=== PATIENT | male | born 1985 | race Caucasian/White ===

== ENCOUNTER → 2018-05-13 15:00 | Outpatient (CLI) | payer OTHER, SELFPAY ==
--- NOTE | 2018-05-13 15:02 | DI.RAD.S_ITS ---
PROCEDURE: XR FINGER RT MIN 2V INDICATIONS: Pain MCP of 1st digit from hyperextension TECHNIQUE: AP hand, 2 views of the right thumb were acquired. COMPARISON: None. FINDINGS: Bones: Subtle calcification adjacent to dorsal and radial aspect of first metacarpal head, which may represent small avulsion injury in this area. No other fracture or dislocation is seen. Alignment of right hand is anatomic. No suspicious bony lesions. Soft tissues: No suspicious soft tissue calcifications. Soft tissue swelling over dorsal and radial aspect of first MCP joint is seen. IMPRESSION: Findings concerning for subtle avulsion injury involving dorsal and radial aspect of first metacarpal head with overlying soft tissue swelling. Dictated by: Guillermo Dan M.D. on 05/13/2018 at 15:21 Approved by: Guillermo Dan M.D. on 05/13/2018 at 15:23
== END ==
PROVIDERS: Family Provider Family Medicine; PCP Family Medicine; Visit Provider Physician Assistant
DX: S53.31XA Traumatic rupture of right ulnar collateral ligament, initial encounter (principal); M79.644 Pain in right finger(s)
CPT/HCPCS: 73140

== ENCOUNTER → 2018-09-22 11:51 | Outpatient (CLI) | payer OTHER, SELFPAY | PROVIDERS: Family Provider Family Medicine; PCP Family Medicine; Visit Provider Physician Assistant | DX: R68.89 Other general symptoms and signs (principal) | CPT/HCPCS: 87400 ==

== ENCOUNTER 2018-12-09 15:11 | Emergency (ER) | payer OTHER, SELFPAY ==
[2018-12-09 15:15] VITALS: BP 173/100; PULSE 93; RESP 18; TEMP 36.4; O2SAT 97; BMI 29.1
[2018-12-09 15:30] VITALS: BP 153/92; PULSE 89; RESP 18; O2SAT 97
--- NOTE | 2018-12-09 15:35 | DI.RAD.S_ITS ---
PROCEDURE: XR CHEST 1V INDICATIONS: chest pain TECHNIQUE: One view of the chest was acquired. COMPARISON: [facility], , CHEST 2 VIEW, 05/09/2016, 16:10. FINDINGS: Surgical changes and devices: None. Lungs and pleura: Lungs are clear. No pleural effusions or pneumothorax. Mediastinum: Mediastinal contours appear normal. Heart size is normal. Bones and chest wall: No suspicious bony lesions. Overlying soft tissues appear unremarkable. IMPRESSION: No acute disease Dictated by: Compa Packer M.D. on 12/09/2018 at 15:43 Approved by: Compa Packer M.D. on 12/09/2018 at 15:44
--- NOTE | 2018-12-09 15:42 | PC.NURSE ---
Had recent ear infection treated one week ago by walk in clinic with abx. States his ear is still hurting him and he has a 10/10 pounding headache. Took cough syrup last night and Tylenol earlier today.
[2018-12-09 15:43] LABS: INR 1.1 (0.9-1.3); Prothrombin Time 12.6 SECONDS (10.1-12.7)
[2018-12-09 15:46] LABS: PTT Partial Thromboplastin Tim 28 SECONDS (26.4-36.2)
[2018-12-09 16:00] LABS: Add Manual Diff / Slide Review NO; Basophils Absolute Auto 0 /uL (0-100); Basophils Percent Auto 0.2 % (0-2); Eosinophils Absolute Auto 300 /uL (0-450); Eosinophils Percent Auto 4.1 % (2-4); HEMOLYSIS 19 (0-50); Hematocrit 45.1 % (41-53); Lymphocytes Absolute Auto 2100 /uL (1100-4500); Lymphocytes Percent Auto 25.4 % (25-40); Mean Corpuscular HGB Conc 35.5 % (30-36); Mean Corpuscular Hemoglobin 30.5 PG (26-34); Monocytes Absolute Auto 900 /uL (0-900); Monocytes Percent Auto 11.2 % (3-14); Neutrophils Absolute Auto 4800 /uL (1500-7000); Neutrophils Percent Auto 59.1 % (50-75); Platelet Count 239 X10^3/uL (150-400); Red Blood Cell Count 5.24 X10^6/uL (4.5-5.9); Red Cell Distribution Width 13.1 % (11.6-14.8); White Blood Cell Count 8.1 X10^3/uL (4.5-11.0)
[2018-12-09 16:03] LABS: Alanine Aminotransferase 39 IU/L (21-72); Albumin 4.6 g/dL (3.5-5.0); Albumin Globulin Ratio 1.4 (1.0-2.8); Alkaline Phosphatase 51 U/L (38-126); Aspartate Aminotransferase 28 IU/L (17-59); Bilirubin Total 0.5 mg/dL (0.2-1.3); Blood Urea Nitrogen 14 mg/dL (9-20); Calcium 9.6 mg/dL (8.4-10.2); Carbon Dioxide 29 mmol/L (22-32); Chloride 99 mmol/L (98-107); Creatine Kinase 89 U/L (55-170); Estimated Glomerular Filt Rate > 60.0 mL/min (>60); Globulin 3.3 g/dL (1.7-4.1); Glucose 118 mg/dL (70-100); Lipase 80 U/L (23-300); Potassium 3.4 mmol/L (3.4-5.1); Sodium 138 mmol/L (137-145); Total Protein 7.9 g/dL (6.3-8.2)
[2018-12-09 16:19] VITALS: BP 159/91; PULSE 82
[2018-12-09 16:19] LABS: Troponin I < 0.012 ng/mL (0.01-0.034)
[2018-12-09] MEDS: PROCHLORPERAZINE 10 MG/2 ML VIAL IV (16:19)
[2018-12-09] MEDS: KETOROLAC 60 MG/2 ML VIAL 30 MG IV (16:19)
[2018-12-09] MEDS: SODIUM CHLORIDE 0.9% 1,000 ML 1000 ML IV (16:19)
[2018-12-09 17:24] VITALS: BP 146/89; PULSE 90; RESP 21; O2SAT 99
[2018-12-09] MEDS: diphenhydrAMINE 50 MG/ML VIAL 25 MG IV (17:46)
[2018-12-09 17:58] VITALS: BP 165/109; PULSE 89; RESP 11; O2SAT 98
--- NOTE | 2018-12-17 19:21 | ED_ITS ---
HPI - General Adult General Chief complaint: Hypertension Stated complaint: HEADACHE CHEST PAIN BLOOD PRESSURE IS HIGH Time Seen by Provider: 12/09/18 15:21 Source: patient and family Mode of arrival: ambulatory Limitations: no limitations History of Present Illness HPI narrative: Patient comes emergency department complaining of headache and chest tightness. He states his blood pressure has also been running high for the last week or 2. Patient states he has been under an extreme amount of stress at work, as well as some other life stresses outside of work. The patient has a history of hypertension, and states that he had been recently started on another medication for his blood pressure, in addition to his metoprolol. Patient denies any history of heart problems. He denies shortness of breath, nausea, vomiting, abdominal pain, or back pain. He states the chest discomfort is not pain but tightness. He denies dysuria. No fevers or cough. No neurologic deficits. No other complaints at this time. Related Data Home Medications Medication Instructions Recorded Confirmed acetaminophen 1 dose PO PRN PRN 12/09/18 12/10/18 quinapril-hydrochlorothiazide 1 tab PO DAILY 12/09/18 12/10/18 Previous Rx's Medication Instructions Recorded metoprolol tartrate 100 mg PO DAILY #30 tab 12/09/18 doxycycline monohydrate 100 mg 100 mg PO BID #20 tab 12/10/18 tablet Allergies Allergy/AdvReac Type Severity Reaction Status Date / Time No Known Drug Allergies Allergy Verified 12/10/18 13:07 Review of Systems Constitutional Denies chills, Denies fever(s), Reports headache(s), Denies lethargy and Denies weakness Eyes Denies change in vision, Denies eye discharge, Denies irritation and Denies loss of vision ENT Ears, Nose, Mouth, and Throat: Denies change in voice, Reports headache(s), Denies neck pain and Denies sore throat Cardiovascular Denies chest pain, Denies irregular heart rhythm, Denies lightheadedness, Denies palpitations, Denies dyspnea, Denies dyspnea on exertion and Denies orthopnea Comments: Chest tightness Respiratory Denies cough, Denies dyspnea, Denies dyspnea on exertion and Denies wheezing Gastrointestinal Gastrointestinal: Denies abdominal pain, Denies change in bowel habits, Denies diarrhea, Denies nausea and Denies vomiting Genitourinary Denies hematuria, Denies flank pain, Denies urinary incontinence and Denies urinary urgency Musculoskeletal Denies neck pain Integumentary/Breasts Denies pruritus, Denies erythema, Denies rash and Denies wounds Neurologic Denies confusion, Reports headache(s), Denies loss of vision and Denies weakness Psychiatric Denies anxiety, Denies confusion, Denies depression, Denies homicidal ideation and Denies suicidal ideation Endocrine Denies palpitations Hematologic/Lymphatic Denies easy bruising Allergic/Immunologic Denies wheezing PFSH Medical History HTN (hypertension) (Acute) Surgical History No pertinent past surgical history (Acute) Social History Smoking Status: Never smoker second hand exposure: No alcohol intake: current (Beer about 1x/month) substance use type: does not use Social History Smoking Status: Never smoker second hand exposure: No alcohol intake: current (Beer about 1x/month) substance use type: does not use Exam Initial Vital Signs Initial Vital Signs: Vital Signs Temperature 97.5 F L 12/09/18 15:15 Pulse Rate 93 H 12/09/18 15:15 Respiratory Rate 18 12/09/18 15:15 Blood Pressure 173/100 H 12/09/18 15:15 Pulse Oximetry 97 12/09/18 15:15 Const General: cooperative and well developed Nutritional Appearance: well nourished Orientation: alert, awake, oriented x3 and not confused [facility] Head: normocephalic and atraumatic Ears: external ears normal Nose: external nose normal and No nasal discharge Face and sinus: face symmetric and No dry mucous membranes Mouth: oral mucosae normal and moist mucous membranes Teeth and gingiva: dentition normal Eyes General: appearance normal, both eyes and all related structures Eyelids: eyelids normal Conjunctivae: conjunctivae normal Sclera: sclerae normal Pupils: PERRL EOM: EOM intact bilaterally Neck Neck: normal visual inspection, trachea midline, No lymphadenopathy, No midline deformity and No JVD Lymphatic: No lymphedema Chest Chest: normal inspection of the chest Resp Effort & Inspection: normal respiratory effort, able to speak in complete sentences, no respiratory distress and no use of accessory muscles Auscultation: clear to auscultation bilaterally, no rales, no rhonchi and no wheezes Cardio Rate: regular rate Rhythm: regular rhythm Heart Sounds: no click, no gallops, no murmurs and no rubs Pulses: normal peripheral pulses GI Inspection: non-distended Palpation: soft, no hepatosplenomegaly, No guarding, No pulsatile mass and No tender Auscultation: normal bowel sounds Back/Spine/Pelvis Back: No CVA tenderness Cervical Spine: cervical ROM normal and No pain with cervical ROM Thoracic/Lumbar Spine: thoracic and lumbar spine normal to inspection Skin General: no rashes or lesions noted, No jaundice and No petechiae Neuro General: alert, oriented x3, gait normal and no focal motor deficits Speech: speech normal Extrem General: full ROM, no clubbing, cyanosis or edema, no pedal edema and no calf tenderness Psych Appearance: well kempt Mental Status: mental status grossly normal Attitude: cooperative Thought Content: normal and suicidality Judgment: judgment good Course Course Narrative: The patient was treated symptomatically with Toradol Compazine and Benadryl. His blood pressure did come down to the 140s over 80s, which was a significant improvement. Patient's workup, including cardiac markers, was negative. I discussed with the patient that it may be time for him to look for a different job but if his job is causing him this much stress. The patient states that he is actually working on this. We have discussed other beneficial lifestyle changes that he could make to help his blood pressure. The patient's pain and discomfort are improved to a 2/10, and I feel he is stable for discharge home. We have discussed the usual indications for return. Orders Ordered: Discontinued Medications Diphenhydramine HCl (Benadryl) 25 mg IV NOW ONE Stop: 12/09/18 17:38 Last Admin: 12/09/18 17:46 Dose: 25 mg Sodium Chloride (Normal Saline 0.9%) 1,000 mls @ 1,000 mls/hr IV BOLUS ONE Stop: 12/09/18 17:06 Last Infusion: 12/09/18 17:46 Dose: 0 mls/hr Admin: 12/09/18 16:19 Dose: 1,000 mls/hr Ketorolac Tromethamine (Toradol) 30 mg IV NOW ONE Stop: 12/09/18 16:08 Last Admin: 12/09/18 16:19 Dose: 30 mg Prochlorperazine (Compazine) 10 mg IV NOW ONE Stop: 12/09/18 16:08 Last Admin: 12/09/18 16:19 Dose: 10 mg Medical Decision Making Medical Records Medical records reviewed: Yes I reviewed the patient's medical records. Lab Data Lab results reviewed: Yes I reviewed the patient's lab results. Result diagrams: 12/09/18 15:20 12/09/18 15:20 Lab Results 12/09/18 12/09/18 12/09/18 Range/Units 15:20 15:20 15:20 WBC 8.1 (4.5-11.0) X10^3/uL RBC 5.24 (4.5-5.9) X10^6/uL Hgb 16.0 (13.5-17.5) g/dL Hct 45.1 (41-53) % MCV 86.0 (80-100) fL MCH 30.5 (26-34) PG MCHC 35.5 (30-36) % RDW 13.1 (11.6-14.8) % Plt Count 239 (150-400) X10^3/uL Neut % (Auto) 59.1 (50-75) % Lymph % (Auto) 25.4 (25-40) % [place] % (Auto) 11.2 (3-14) % Eos % (Auto) 4.1 H (2-4) % Baso % (Auto) 0.2 (0-2) % Neut # (Auto) 4800 (2359-6060) /uL Lymph # (Auto) 2100 (2530-9360) /uL [place] # (Auto) 900 (0-900) /uL Eos # (Auto) 300 (0-450) /uL Baso # (Auto) 0 (0-100) /uL PT 12.6 (10.1-12.7) SECONDS INR 1.1 (0.9-1.3) APTT 28 (26.4-36.2) SECONDS Sodium 138 (137-145) mmol/L Potassium 3.4 (3.4-5.1) mmol/L Chloride 99 (98-107) mmol/L Carbon Dioxide 29 (22-32) mmol/L BUN 14 (9-20) mg/dL Creatinine 0.70 (0.66-1.25) mg/dL Estimated GFR > 60.0 (>60) mL/min BUN/Creatinine Ratio 20.0 (6-22) Glucose 118 H (70-100) mg/dL Calcium 9.6 (8.4-10.2) mg/dL Total Bilirubin 0.5 (0.2-1.3) mg/dL AST 28 (17-59) IU/L ALT 39 (21-72) IU/L Alkaline Phosphatase 51 (38-126) U/L Total Creatine Kinase 89 (55-170) U/L CK-MB (CK-2) TNP CK-MB (CK-2) Rel Index TNP Troponin I < 0.012 (0.01-0.034) ng/mL Total Protein 7.9 (6.3-8.2) g/dL Albumin 4.6 (3.5-5.0) g/dL Globulin 3.3 (1.7-4.1) g/dL Albumin/Globulin Ratio 1.4 (1.0-2.8) Lipase 80 (23-300) U/L Imaging Data Chest x-ray: Radiologist's impression: PROCEDURE: XR CHEST 1V INDICATIONS: chest pain TECHNIQUE: One view of the chest was acquired. COMPARISON: [facility], CHEST 2 VIEW, 05/09/2016, 16:10. FINDINGS: Surgical changes and devices: None. Lungs and pleura: Lungs are clear. No pleural effusions or pneumothorax. Mediastinum: Mediastinal contours appear normal. Heart size is normal. Bones and chest wall: No suspicious bony lesions. Overlying soft tissues appear unremarkable. IMPRESSION: No acute disease Dictated by: Compa Packer M.D. on 12/09/2018 at 15:43 Approved by: Compa Packer M.D. on 12/09/2018 at 15:44 ECG Data Attestation: I personally reviewed and interpreted this ECG as follows: Interpretation: [place]: Normal Rhythm: Normal sinus Rate: Normal No significant ST T wave changes Interpretation: Normal sinus rhythm; no signs of acute ischemia, as interpreted by ED MD. Discharge Plan Departure Patient Disposition: Home Clinical Impression: Essential hypertension Discharge Date/Time: 12/09/18 17:59 Interventions: ED Discharge Assessment Last Done: 12/09/18 17:58 Instructions: DI for High Blood Pressure Activity Restrictions/Additional Instructions: Your labs look good. Your blood pressure is elevated, but not dangerously so. However, especially given your young age, it is important to try to get better control of your blood pressure. As such, your metoprolol dose has been raised to 100 mg from 75. Please take 2 pills every day instead of 1.5, and see your primary care physician to be sure this is a good long-term plan. Your prescription has been electronically sent to the [facility] pharmacy. Prescriptions: Changed metoprolol tartrate 50 mg tablet 100 mg PO DAILY Qty: 30 RF: 0 No Action doxycycline monohydrate 100 mg tablet 100 mg PO BID Qty: 20 RF: 0 quinapril-hydrochlorothiazide 20-12.5 mg tablet 1 tab PO DAILY RF: 0 acetaminophen 325 mg Tablet 1 dose PO PRN PRN (Reason: pain or fever) RF: 0 Referrals: Renzo Cuevas MD [Primary Care Provider] -
== END 2018-12-09 17:59 | disposition home or self-care (01) ==
PROVIDERS: Emergency Provider Emergency Medicine; Family Provider Family Medicine; PCP Family Medicine
DX: I10 Essential (primary) hypertension (principal)
CPT/HCPCS: 36591; 71045; 80053; 82550; 83690; 84484; 85025; 85610; 85730; 93005; 96361; 96374; 96375; 99283; 99285; J0780; J1200; J1885

== ENCOUNTER → 2018-12-11 06:57 | Outpatient (CLI) | payer OTHER, SELFPAY ==
[2018-12-11 08:37] LABS: Cholesterol 164 mg/dL (140-199); HDL Cholesterol 30 mg/dL (40-60); LDL Cholesterol Calculated 75 mg/dL (<100); Triglycerides 293 mg/dL (35-150)
[2018-12-11 09:55] LABS: Creatinine Urine Random 184.3 mg/dL
[2018-12-11 09:59] LABS: Microalbumi Creatinin Ratio Ur 8.6 ug/mg CR (<30); Microalbumin Urine Random 1.6 mg/dL (0-1.6)
== END ==
PROVIDERS: PCP Family Medicine; Visit Provider Nurse Practitioner Family
DX: E78.00 Pure hypercholesterolemia, unspecified (principal); I10 Essential (primary) hypertension
CPT/HCPCS: 36415; 80061; 82043; 82570

== ENCOUNTER → 2019-03-27 14:04 | Outpatient (CLI) | payer OTHER, SELFPAY ==
--- NOTE | 2019-03-27 14:06 | DI.RAD.S_ITS ---
PROCEDURE: XR ANKLE RT MIN 3V INDICATIONS: right lateral ankle pain TECHNIQUE: 3 views of the ankle were acquired. COMPARISON: None. FINDINGS: Bones: Subtle lucency at the tip of the distal fibula. Ankle mortise is normally aligned. No suspicious bony lesions. Small plantar calcaneal spur. Soft tissues: Minimal swelling at the lateral malleolus. No tibiotalar joint effusion. Achilles tendon appears normal. IMPRESSION: Lucency at the tip of the distal fibula is suspicious for nondisplaced acute fracture. Followup radiographs in 7-10 days would be helpful for further evaluation. Dictated by: Andrea Reyes M.D. on 03/27/2019 at 15:36 Approved by: Andrea Reyes M.D. on 03/27/2019 at 15:41
== END ==
PROVIDERS: PCP Nurse Practitioner Family; Visit Provider Nurse Practitioner Family
DX: M25.571 Pain in right ankle and joints of right foot (principal); M77.31 Calcaneal spur, right foot
CPT/HCPCS: 73610

== ENCOUNTER → 2019-03-28 07:52 | Outpatient (CLI) | payer OTHER, SELFPAY ==
[2019-03-28 09:12] LABS: Triglycerides 238 mg/dL (35-150)
== END ==
PROVIDERS: PCP Nurse Practitioner Family; Visit Provider Nurse Practitioner Family
DX: E78.1 Pure hyperglyceridemia (principal)
CPT/HCPCS: 84478

== ENCOUNTER → 2020-01-22 06:49 | Outpatient (CLI) | payer OTHER, SELFPAY ==
[2020-01-22 08:05] LABS: Add Manual Diff / Slide Review NO; Basophils Absolute Auto 0 /uL (0-100); Basophils Percent Auto 0.6 % (0-2); Eosinophils Absolute Auto 200 /uL (0-450); Eosinophils Percent Auto 2.9 % (2-4); Hematocrit 45.4 % (41-53); Hemoglobin 15.9 g/dL (13.5-17.5); Lymphocytes Absolute Auto 2600 /uL (1100-4500); Lymphocytes Percent Auto 31.9 % (25-40); Mean Corpuscular Hemoglobin 30.9 PG (26-34); Mean Corpuscular Volume 88.5 fL (80-100); Monocytes Absolute Auto 600 /uL (0-900); Monocytes Percent Auto 7.4 % (3-14); Neutrophils Absolute Auto 4700 /uL (1500-7000); Neutrophils Percent Auto 57.2 % (50-75); Platelet Count 250 X10^3/uL (150-400); Red Blood Cell Count 5.13 X10^6/uL (4.5-5.9); Red Cell Distribution Width 12.8 % (11.6-14.8); White Blood Cell Count 8.2 X10^3/uL (4.5-11.0)
[2020-01-22 08:38] LABS: BUN Creatinine Ratio 25.3 (6-22); Blood Urea Nitrogen 20 mg/dL (9-20); Calcium 9.9 mg/dL (8.4-10.2); Carbon Dioxide 30 mmol/L (22-32); Chloride 101 mmol/L (98-107); Cholesterol 182 mg/dL (140-199); Estimated Glomerular Filt Rate > 60.0 mL/min (>60); Glucose 104 mg/dL (70-100); HDL Cholesterol 36 mg/dL (40-60); HEMOLYSIS < 15 (0-50); LDL Cholesterol Calculated 82 mg/dL (<100); Sodium 138 mmol/L (137-145); Triglycerides 318 mg/dL (35-150)
== END ==
PROVIDERS: PCP Nurse Practitioner Family; Referring Provider Nurse Practitioner Family; Visit Provider Nurse Practitioner Family
DX: E78.1 Pure hyperglyceridemia (principal); I10 Essential (primary) hypertension
CPT/HCPCS: 36415; 80048; 80061; 85025

== ENCOUNTER → 2021-01-23 07:02 | Outpatient (CLI) | payer BC, SELFPAY ==
[2021-01-23 08:38] LABS: Alanine Aminotransferase 42 IU/L (<50); Albumin 4.5 g/dL (3.5-5.0); Albumin Globulin Ratio 1.5 (1.0-2.8); Alkaline Phosphatase 42 U/L (38-126); Aspartate Aminotransferase 30 IU/L (17-59); BUN Creatinine Ratio 15.1 (6-22); Bilirubin Total 0.6 mg/dL (0.2-1.3); Blood Urea Nitrogen 13 mg/dL (9-20); Calcium 9.7 mg/dL (8.4-10.2); Carbon Dioxide 29 mmol/L (22-32); Chloride 104 mmol/L (98-107); Cholesterol 187 mg/dL (140-199); Estimated Glomerular Filt Rate > 60.0 mL/min (>60); Glucose 108 mg/dL (70-100); HDL Cholesterol 41 mg/dL (40-60); HEMOLYSIS < 15 (0-50); LDL Cholesterol Calculated 114 mg/dL (<100); Magnesium 2.1 mg/dL (1.6-2.3); Potassium 3.8 mmol/L (3.4-5.1); Sodium 140 mmol/L (137-145); Total Protein 7.5 g/dL (6.3-8.2); Triglycerides 159 mg/dL (35-150)
[2021-01-23 08:49] LABS: Vitamin D 25 Hydroxy (D3) 63.6 ng/mL (30.0-100.0)
[2021-01-23 09:21] LABS: Vitamin B12 274 pg/mL (239-931)
== END ==
PROVIDERS: PCP Nurse Practitioner Family; Referring Provider Nurse Practitioner Family; Visit Provider Nurse Practitioner Family
DX: Z00.00 Encounter for general adult medical examination without abnormal findings (principal); E78.1 Pure hyperglyceridemia; Z01.89 Encounter for other specified special examinations; I10 Essential (primary) hypertension
CPT/HCPCS: 36415; 80053; 80061; 82306; 82607; 83735

== ENCOUNTER → 2022-01-26 11:26 | Outpatient (CLI) | payer BC, SELFPAY ==
[2022-01-26 12:05] LABS: Add Manual Diff / Slide Review NO; Basophils Absolute Auto 100 /uL (0-100); Basophils Percent Auto 0.9 % (0-2); Eosinophils Absolute Auto 200 /uL (0-450); Eosinophils Percent Auto 2.9 % (2-4); Hematocrit 47.2 % (41-53); Hemoglobin 16.6 g/dL (13.5-17.5); Lymphocytes Absolute Auto 3100 /uL (1100-4500); Lymphocytes Percent Auto 39.3 % (25-40); Mean Corpuscular HGB Conc 35.1 % (30-36); Mean Corpuscular Hemoglobin 30.3 PG (26-34); Mean Corpuscular Volume 86.3 fL (80-100); Monocytes Absolute Auto 500 /uL (0-900); Monocytes Percent Auto 6.9 % (3-14); Neutrophils Absolute Auto 3900 /uL (1500-7000); Platelet Count 272 X10^3/uL (150-400); Red Blood Cell Count 5.47 X10^6/uL (4.5-5.9); Red Cell Distribution Width 12.8 % (11.6-14.8); White Blood Cell Count 7.8 X10^3/uL (4.5-11.0)
[2022-01-26 12:19] LABS: Alanine Aminotransferase 55 IU/L (<50); Albumin 5.3 g/dL (3.5-5.0); Albumin Globulin Ratio 1.8 (1.0-2.8); Alkaline Phosphatase 42 U/L (38-126); Aspartate Aminotransferase 32 IU/L (17-59); BUN Creatinine Ratio 15.6 (6-22); Bilirubin Total 0.7 mg/dL (0.2-1.3); Blood Urea Nitrogen 15 mg/dL (9-20); Calcium 9.8 mg/dL (8.4-10.2); Carbon Dioxide 28 mmol/L (22-32); Chloride 102 mmol/L (98-107); Cholesterol 216 mg/dL (140-199); Estimated Glomerular Filt Rate > 60 mL/min (>60); Glucose 104 mg/dL (70-100); HDL Cholesterol 44 mg/dL (40-60); HEMOLYSIS < 15 (0-50); LDL Cholesterol Calculated 135 mg/dL (<100); Potassium 4.3 mmol/L (3.4-5.1); Sodium 141 mmol/L (137-145); Total Protein 8.3 g/dL (6.3-8.2); Triglycerides 185 mg/dL (35-150)
== END ==
PROVIDERS: PCP Family Medicine; Referring Provider Family Medicine; Visit Provider Family Medicine
DX: E78.1 Pure hyperglyceridemia (principal); I10 Essential (primary) hypertension; R73.03 Prediabetes
CPT/HCPCS: 36415; 80053; 80061; 85025

== ENCOUNTER 2022-11-15 06:48 | Day surgery (SDC) | payer BC, SELFPAY ==
[2022-11-15] MEDS: LACTATED RINGERS 1,000 ML 42 ML IV (07:11)
[2022-11-15 07:23] VITALS: BP 120/77; PULSE 63; RESP 21; TEMP 36.6; O2SAT 96; BMI 27.6
--- NOTE | 2022-11-15 07:44 | PM.HP.1 ---
History of Present Illness History of Present Illness Date Patient Seen: 11/15/22 Time Patient Seen: 07:44 Chief complaint: Screening Colonoscopy Narrative: Buzz is a 36-year-old man who presents for colonoscopy because of rectal pain and rectal bleeding. Please see the office note from September details [facility] Medical History Bunion of great toe of right foot Family history of colon cancer HTN (hypertension) Patient request for diagnostic testing Prediabetes Prostatitis Surgical History No pertinent past surgical history Social History marital status: household members: spouse and children lives independently: Yes occupational status: employed Smoking Status: Former smoker second hand exposure: No alcohol intake: former substance use type: does not use Meds Home Medications and Allergies Home Medications Medication Instructions Recorded Confirmed Type metoprolol tartrate 50 mg tablet 50 mg PO BID #180 tabs 01/26/22 11/15/22 Rx lisinopril 20 1 tab PO DAILY #90 tabs 05/22/22 11/15/22 Rx mg-hydrochlorothiazide 12.5 mg tablet Allergies Allergy/AdvReac Type Severity Reaction Status Date / Time No Known Drug Allergies Allergy Verified 11/15/22 07:13 Exam Vital Signs (past 8 hours): - 11/15/22 07:23 Temperature 97.9 F Pulse Rate 63 Respiratory Rate 21 Blood Pressure 120/77 Pulse Oximetry 96 Oxygen Delivery Method Room Air Oxygen Delivery Method Room Air Const General: No acute distress Assessment & Plan Assessment and plan (1) Family history of colon cancer: Status: Acute (2) Rectal bleeding: Status: Acute Plan Reviewed risks and benefits of colonoscopy and he would like to proceed.
--- NOTE | 2022-11-15 08:20 | P.OP.COLON_ITS ---
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 The patient was connected to monitoring devices. A time-out was performed. Sedation was administered. Once the patient was adequately sedated, a digital rectal exam was performed and was normal. The scope was then inserted and advanced to the cecum where the appendiceal orifice was identified and photographed. The scope was then slowly withdrawn over greater than 6 minutes. The mucosa was thoroughly inspected. No polyps were seen. The scope was retroflexed in the rectum. No other abnormalities were seen. The scope was straightened and removed. The patient was awakened and brought to recovery. Scope withdrawal time: 20 minutes Sedation time: 27 minutes EBL: 0 Findings: Normal colon Post-procedure Recommendations: Colonoscopy in 10 years Disposition: PACU
[2022-11-15 08:22] VITALS: BP 99/59; PULSE 67; RESP 16; TEMP 36.2; O2SAT 100
[2022-11-15 08:27] VITALS: BP 99/62; PULSE 67; RESP 14; O2SAT 95
[2022-11-15 08:32] VITALS: BP 116/74; PULSE 73; RESP 16; TEMP 36.2; O2SAT 95
== END 2022-11-15 08:50 | disposition home or self-care (01) ==
PROVIDERS: PCP Family Medicine; Referring Provider Surgery; Visit Provider Surgery
PROC: 0DJD8ZZ Inspection of Lower Intestinal Tract, Via Natural or Artificial Opening Endoscopic (ICD-10-PCS; CPT 45378; principal; 2022-11-15 07:45)
DX: K62.5 Hemorrhage of anus and rectum (principal); Z86.010 Personal history of colon polyps; K62.89 Other specified diseases of anus and rectum
CPT/HCPCS: 45378; J2704

== ENCOUNTER → 2022-12-08 08:54 | Outpatient (CLI) | payer OTHER, SELFPAY ==
--- NOTE | 2022-12-08 08:56 | DI.MRI.S_ITS ---
PROCEDURE: MR ELBOW RT WO CON INDICATIONS: Pain in right elbow TECHNIQUE: Noncontrast coronal proton density fast spin echo and T2 fast spin echo with fat saturation, axial and sagittal T1 spin echo and T2 fast spin echo with fat saturation through the elbow. COMPARISON: None. FINDINGS: Image quality: Excellent. Lateral structures: The lateral ulnar collateral ligament and radial collateral ligament both appear intact. The overlying common extensor tendon also appears normal. Medial structures: The ulnar collateral ligament appears thickened near its medial epicondylar insertion. The overlying common flexor tendon also appears thickened at its medial epicondylar insertion with intrasubstance T2 hyperintense signal. The ulnar nerve appears normal in size and signal within the cubital tunnel. Anterior structures: The biceps and brachialis tendons both appear intact as they insert onto the proximal radius and ulna, respectively. No bicipitoradial bursal fluid. The median and radial neurovascular bundles appear normal; no focal muscle atrophy to suggest nerve impingement. Posterior structures: Distal triceps tendon is thickened with intrasubstance T2 hyperintense signal at its proximal olecranon insertion. No olecranon bursal fluid. Bone and cartilage: No bone marrow contusions or fractures. No osteochondral injuries. IMPRESSION: 1. Finding is suggestive of medial epicondylitis with tendinosis and low-grade partial-thickness tear involving common flexor tendon origin and underlying ulnar collateral ligament sprain/partial-thickness tear. 2. Distal triceps tendinosis and low-grade partial-thickness tear at its proximal olecranon insertion. 3. No marrow edema. No fracture or dislocation. Rest of the elbow tendons and ligaments are intact. Dictated by: Guillermo Dan M.D. on 12/11/2022 at 10:27 Approved by: Guillermo Dan M.D. on 12/11/2022 at 10:39
== END ==
PROVIDERS: PCP Family Medicine; Referring Provider Orthopaedic Surgery; Visit Provider Orthopaedic Surgery
DX: M25.521 Pain in right elbow (principal); S46.811A Strain of other muscles, fascia and tendons at shoulder and upper arm level, right arm, initial encounter
CPT/HCPCS: 73221

== ENCOUNTER → 2024-05-12 08:17 | Outpatient (CLI) | payer BC, SELFPAY ==
[2024-05-12 08:48] LABS: Add Manual Diff / Slide Review NO; Basophils Absolute Auto 100 /uL (0-100); Basophils Percent Auto 0.7 % (0-2); Eosinophils Absolute Auto 200 /uL (0-450); Eosinophils Percent Auto 3.1 % (2-4); Hematocrit 45.8 % (41-53); Hemoglobin 15.9 g/dL (13.5-17.5); Lymphocytes Absolute Auto 2800 /uL (1100-4500); Lymphocytes Percent Auto 34.4 % (25-40); Mean Corpuscular HGB Conc 34.7 % (30-36); Mean Corpuscular Hemoglobin 30.5 PG (26-34); Mean Corpuscular Volume 87.9 fL (80-100); Monocytes Absolute Auto 500 /uL (0-900); Monocytes Percent Auto 6.5 % (3-14); Neutrophils Absolute Auto 4500 /uL (1500-7000); Neutrophils Percent Auto 55.3 % (50-75); Platelet Count 270 X10^3/uL (150-400); Red Blood Cell Count 5.21 X10^6/uL (4.5-5.9); Red Cell Distribution Width 12.7 % (11.6-14.8)
[2024-05-12 09:03] LABS: Hemoglobin A1C% w Est Avg Glu 5.5 % (4.0-6.0)
[2024-05-12 09:13] LABS: Alanine Aminotransferase 44 IU/L (<50); Albumin 4.5 g/dL (3.5-5.0); Albumin Globulin Ratio 1.6 (1.0-2.8); Alkaline Phosphatase 45 U/L (38-126); Aspartate Aminotransferase 26 IU/L (17-59); BUN Creatinine Ratio 24.4 (6-22); Bilirubin Total 0.5 mg/dL (0.2-1.3); Blood Urea Nitrogen 19 mg/dL (9-20); Calcium 9.6 mg/dL (8.4-10.2); Carbon Dioxide 25 mmol/L (22-32); Chloride 102 mmol/L (98-107); Cholesterol 225 mg/dL (140-199); Estimated Glomerular Filt Rate > 60 mL/min (>60); Globulin 2.8 g/dL (1.7-4.1); Glucose 108 mg/dL (70-100); HDL Cholesterol 46 mg/dL (40-60); HEMOLYSIS < 15 (0-50); LDL Cholesterol Calculated 118 mg/dL (<100); Potassium 4.4 mmol/L (3.4-5.1); Sodium 135 mmol/L (137-145); Total Protein 7.3 g/dL (6.3-8.2); Triglycerides 304 mg/dL (35-150)
== END ==
PROVIDERS: PCP Family Medicine; Referring Provider Family Medicine; Visit Provider Family Medicine
DX: R73.03 Prediabetes (principal); I10 Essential (primary) hypertension; E78.00 Pure hypercholesterolemia, unspecified
CPT/HCPCS: 36415; 80053; 80061; 83036; 85025